=== PATIENT | male | born 1965 | race Caucasian/White ===

== ENCOUNTER 2022-12-03 14:27 | Emergency (ER) | payer MEDICAID, OTHER ==
[~2022-12-03] VITALS: Ht 172.7 cm; Wt 75.0 kg
[2022-12-03] MEDS ORDERED: LORAZEPAM 1MG TABLET PO ONE (17:00)
[2022-12-03] MEDS ORDERED: SERTRALINE HCL 100MG TABLET PO SCH (18:00)
[2022-12-03] MEDS ORDERED: AMLODIPINE 10MG TABLET PO ONE (18:00)
[2022-12-03 18:25] LABS: BASOPHILS % 0.2 % (0.0-2.0); EOSINOPHILS % 0.3 % (0.0-5.0); HEMATOCRIT. 45.4 % (42.0-52.0); HEMOGLOBIN. 15.7 g/dL (14.0-18.0); LYMPHOCYTES % 9.8 % (20.0-50.0); MEAN CORPUSCULAR VOLUME 86.8 fL (80.0-94.0); MEAN PLATELET VOLUME 7.7 fl (7.4-10.4); MONOCYTES % 6.5 % (2.0-8.0); NEUTROPHILS % 83.2 % (40.0-76.0); PLATELET 245 x1000/uL (130-400); RED BLOOD CELL COUNT 5.23 mill/uL (4.7-6.1); RED CELL DISTRIBUTION WIDTH 13.5 % (11.6-14.6)
[2022-12-03 18:31] LABS: CHLORIDE 101 mEq/L (98-107)
[2022-12-03 18:58] VITALS: BP 147/102
[2022-12-03] MEDS ORDERED: SERT100T MT (19:11)
[2022-12-03] MEDS ORDERED: AMLO10TA80 MT (19:11)
[2022-12-05] MEDS ORDERED: AMLO10TA80 MT (10:35)
[2022-12-05] MEDS ORDERED: SERT100T MT (10:35)
== END 2022-12-03 19:27 | disposition home or self-care (01) ==
LOC: ER 15:21
DX: I10 Essential (primary) hypertension (principal); F41.9 Anxiety disorder, unspecified; Z88.8 Allergy status to other drugs, medicaments and biological substances
CPT/HCPCS: 36415; 71045; 80053; 83880; 84484; 85025; 93005; 99285; Z7610